=== PATIENT | male | born 1950 | race Hispanic/Latino ===

== ENCOUNTER 2018-10-04 04:43 | Emergency (ER) | payer OTHER | END 2018-10-04 06:23 | disposition home or self-care (01) | LOC: NAV ERS 04:43 | DX: J06.9 Acute upper respiratory infection, unspecified (principal); Z79.899 Other long term (current) drug therapy | CPT/HCPCS: 87081; 87430; 87804; 99283 ==

== ENCOUNTER 2019-07-02 09:33 | Emergency (ER) | payer OTHER ==
[2019-07-02] MEDS ORDERED: Ibuprofen 200 MG TAB ONE (10:07)
--- NOTE | 2019-07-02 10:31 | RAD ---
XR Chest Pa Lat STANDARD HISTORY: Cough COMPARISON: None FINDINGS: The heart size is normal. The lungs are well expanded without focal areas of consolidation, pneumothorax or pleural effusions. IMPRESSION: No radiographic evidence of acute cardiopulmonary process.
== END 2019-07-02 11:27 | disposition home or self-care (01) ==
LOC: NAV ERS 09:33
DX: B34.9 Viral infection, unspecified (principal); I10 Essential (primary) hypertension; Z79.899 Other long term (current) drug therapy
CPT/HCPCS: 71046; 87081; 87430; 87804

== ENCOUNTER 2022-03-24 08:56 | Outpatient (CLI) | payer MEDICAID, MEDICARE | END 2022-03-24 08:57 | disposition home or self-care (01) | LOC: NAV RAD 08:56 | PROVIDERS: ATTEND Family Medicine | DX: M51.36 Other intervertebral disc degeneration, lumbar region (principal); M47.816 Spondylosis without myelopathy or radiculopathy, lumbar region | CPT/HCPCS: 72100 ==

== ENCOUNTER 2023-03-02 16:50 | Emergency (ER) | payer OTHER, MEDICAID ==
[2023-03-02] MEDS ORDERED: Lidocaine Viscous Sol 2% 15 ml UD Cup ONE (17:28)
[2023-03-02] MEDS ORDERED: Mag-Al Plus 1200 MG/1200 MG/120 MG/30 ML UDCUP ONE (17:28)
== END 2023-03-02 17:39 | disposition home or self-care (01) ==
LOC: NAV ERS 16:50
DX: K29.00 Acute gastritis without bleeding (principal); R09.81 Nasal congestion; I10 Essential (primary) hypertension
CPT/HCPCS: 99283

== ENCOUNTER 2023-03-04 19:26 | Emergency (ER) | payer OTHER, MEDICAID ==
[2023-03-04] MEDS ORDERED: Mag-Al Plus 1200 MG/1200 MG/120 MG/30 ML UDCUP ONE (20:21)
[2023-03-04] MEDS ORDERED: Sucralfate 1 GM TAB ONE (20:21)
[2023-03-04] MEDS ORDERED: Lidocaine Viscous Sol 2% 15 ml UD Cup ONE (20:21)
== END 2023-03-04 20:35 | disposition home or self-care (01) ==
LOC: NAV ERS 19:26
DX: K29.70 Gastritis, unspecified, without bleeding (principal); K21.00 Gastro-esophageal reflux disease with esophagitis, without bleeding; I10 Essential (primary) hypertension; Z79.899 Other long term (current) drug therapy
CPT/HCPCS: 99283

== ENCOUNTER 2023-07-28 14:57 | Outpatient (CLI) | payer OTHER, MEDICAID | END 2023-07-28 14:58 | disposition home or self-care (01) | LOC: NAV RAD 14:57 | PROVIDERS: ATTEND Nurse Practitioner Family | DX: M25.572 Pain in left ankle and joints of left foot (principal) ==

== ENCOUNTER 2024-01-07 14:50 | Outpatient (CLI) | payer OTHER, MEDICAID | END 2024-01-07 14:51 | disposition home or self-care (01) | LOC: NAV RAD 14:50 | PROVIDERS: ATTEND Family Medicine | DX: M51.36 Other intervertebral disc degeneration, lumbar region (principal); M47.814 Spondylosis without myelopathy or radiculopathy, thoracic region; M47.816 Spondylosis without myelopathy or radiculopathy, lumbar region | CPT/HCPCS: 72072; 72100 ==

== ENCOUNTER 2025-04-02 22:46 | Emergency (ER) | payer OTHER, MEDICAID ==
[~2025-04-02 22:46] MED LIST: Iopamidol 370 76% 100 ML VIAL ONE
[2025-04-02] MEDS ORDERED: Tetracaine 0.5% PF 4 ML BOT ONE (23:38)
[2025-04-02] MEDS ORDERED: Fluorescein Opthalmic Strip ONE (23:38)
[2025-04-02 23:44] LABS: #Basophils 0.1 thou/uL (0.0-0.2); #Eosinophils 0.7 thou/uL (0.0-0.7); #Lymphocytes 1.5 thou/uL (1.20-3.40); #Monocytes 0.6 thou/uL (0.11-0.59); #Neutrophils 3.5 thou/uL (1.40-6.50); %Basophils 1.0 % (0.0-1.0); %Eosinophils 11.2 % (0.0-10.0); %Lymphocytes 23.8 % (21.0-51.0); %Monocytes 9.6 % (0.0-10.0); %Neutrophils 54.4 % (42.0-75.0); Hematocrit 45.1 % (42.0-52.0); Hemoglobin 15.4 g/dL (14.0-18.0); Mean Corpuscular Hemoglobin 28.1 pg (27.0-31.0); Mean Corpuscular Volume 82.4 fl (78.0-98.0); Platelet Count 201 10x3/uL (130-400); Red Blood Cell (RBC) Count 5.48 mill/uL (4.70-6.10); White Blood Cell (WBC) Count 6.5 10x3/uL (4.8-10.8)
[2025-04-02 23:58] LABS: ALT (SGPT) 16 U/L (Less than 45); AST (SGOT) 18 U/L (11-34); Albumin 4.5 g/dL (3.1-4.5); Alkaline Phosphatase 72 U/L (40-110); Anion Gap 15 mmol/L (10-20); BUN (Urea Nitrogen) 21 mg/dL (8.4-25.7); Bilirubin, Total 0.5 mg/dL (0.3-1.2); Calc. Creatinine Clearance 0 mL/min (70-130); Calcium 9.3 mg/dL (7.8-10.44); Carbon Dioxide 23 mmol/L (23-31); Chloride 104 mmol/L (98-107); Globulin 3.0 g/dL (2.4-3.5); Glucose 107 mg/dL (83-110); Potassium 4.3 mmol/L (3.5-5.1); Sodium 138 mmol/L (136-145)
== END 2025-04-03 01:43 | disposition home or self-care (01) ==
LOC: NAV ERS 22:46
DX: H15.001 Unspecified scleritis, right eye (principal); I10 Essential (primary) hypertension; Z79.899 Other long term (current) drug therapy
CPT/HCPCS: 70481; 80053; 85025; Q9967

== ENCOUNTER 2025-06-01 08:59 | Emergency (ER) | payer OTHER, MEDICAID ==
[2025-06-01 09:49] LABS: Hematocrit 47.3 % (42.0-52.0); Hemoglobin 15.9 g/dL (14.0-18.0); Mean Corpuscular Hemoglobin 28.5 pg (27.0-31.0); Mean Corpuscular Volume 84.8 fl (78.0-98.0); Platelet Count 150 10x3/uL (130-400); Red Blood Cell (RBC) Count 5.58 mill/uL (4.70-6.10); White Blood Cell (WBC) Count 6.4 10x3/uL (4.8-10.8)
[2025-06-01 09:50] LABS: %Eosinophils 6.8 % (0.0-10.0); %Lymphocytes 22.0 % (21.0-51.0); %Monocytes 6.6 % (0.0-10.0); %Neutrophils 61.6 % (42.0-75.0); Manual Diff?? NO
[2025-06-01 09:51] LABS: #Basophils 0.2 thou/uL (0.0-0.2); #Eosinophils 0.4 thou/uL (0.0-0.7); #Lymphocytes 1.4 thou/uL (1.20-3.40); #Monocytes 0.4 thou/uL (0.11-0.59); #Neutrophils 4.0 thou/uL (1.40-6.50); %Basophils 3.1 % (0.0-1.0)
[2025-06-01 09:58] LABS: ALT (SGPT) 26 U/L (Less than 45); AST (SGOT) 27 U/L (11-34); Albumin 4.4 g/dL (3.1-4.5); Alkaline Phosphatase 84 U/L (40-110); Anion Gap 15 mmol/L (10-20); BUN (Urea Nitrogen) 21 mg/dL (8.4-25.7); Bilirubin, Total 0.6 mg/dL (0.3-1.2); Calc. Creatinine Clearance 0 mL/min (70-130); Calcium 9.5 mg/dL (7.8-10.44); Carbon Dioxide 24 mmol/L (23-31); Chloride 103 mmol/L (98-107); Globulin 3.1 g/dL (2.4-3.5); Glucose 123 mg/dL (83-110); Potassium 4.7 mmol/L (3.5-5.1); Sodium 137 mmol/L (136-145)
== END 2025-06-01 10:33 | disposition home or self-care (01) ==
LOC: NAV ERS 08:59
DX: H81.10 Benign paroxysmal vertigo, unspecified ear (principal); H65.92 Unspecified nonsuppurative otitis media, left ear; R29.700 NIHSS score 0; I10 Essential (primary) hypertension; Z79.899 Other long term (current) drug therapy
CPT/HCPCS: 80053; 85025; 93005; 99284